=== PATIENT | female | born 1980 | race African-American/Black ===

== ENCOUNTER 2018-02-24 09:33 | Emergency (ER) | payer OTHER ==
[2018-02-24 09:51] VITALS: BP 141/80; PULSE 69; TEMP 98.7; BMI 28.2
[2018-02-24] MEDS ORDERED: KETOROLAC TROMETHAMINE 60 MG/2 ML VIAL IM ONE (10:49)
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
[2018-02-24] MEDS ORDERED: KETOROLAC TROMETHAMINE 60 MG/2 ML VIAL ONE (11:06)
== END 2018-02-24 12:32 | disposition home or self-care (01) ==
LOC: JERFT 09:33
PROC: 3E0233Z Introduction of Anti-inflammatory into Muscle, Percutaneous Approach (ICD-10-PCS; principal; 2018-02-24)
DX: S16.1XXA Strain of muscle, fascia and tendon at neck level, initial encounter (principal); S13.4XXA Sprain of ligaments of cervical spine, initial encounter; M54.5 Low back pain; I10 Essential (primary) hypertension; F17.210 Nicotine dependence, cigarettes, uncomplicated
CPT/HCPCS: 72050-TC-FY; 72100-TC-FY; 84703; 99281-25

== ENCOUNTER 2024-02-28 10:47 | Emergency (ER) | payer OTHER ==
[2024-02-28 10:52] VITALS: BP 120/68; PULSE 81; RESP 20; TEMP 97.6; BMI 51.7
[2024-02-28] MEDS ORDERED: FLUCONAZOLE 150 MG TABLET PO ONE (11:46)
[2024-02-28] MEDS: FLUCONAZOLE 150 MG TABLET PO ONE (11:56)
== END 2024-02-28 11:56 | disposition home or self-care (01) ==
LOC: JERFT 10:47
DX: N76.0 Acute vaginitis (principal); L29.2 Pruritus vulvae
CPT/HCPCS: 99284-25